=== PATIENT | male | born 1965 | race Asian ===

== ENCOUNTER 2022-03-20 12:28 | Inpatient (IN) | payer OTHER ==
[2022-03-20 12:38] VITALS: TEMP 97.8; BMI 25.0
[2022-03-20] MEDS ORDERED: FENTANYL CITRATE/PF 50 MCG/ML VIAL ONE (12:54)
[2022-03-20] MEDS ORDERED: LACTATED RINGERS SOLUTION 1,000 ML/1,000 ML INFUS.BAG IV STA (12:57)
[2022-03-20 13:17] LABS: EOS % 1.4 % (0-4.5); HEMATOCRIT 48.9 % (35.4-49); HEMOGLOBIN 17.1 GM/dL (11.7-16.9); LYMPH % 27.4 % (8-40); MEAN CELL VOLUME 94.3 fl (80-96); MEAN PLT VOLUME 7.7 fl (7.5-11.1); NEUT % 60.2 % (42.8-82.8); PLATELET COUNT 188 10^3/uL (134-434); RBC 5.19 M/mm3 (4.00-5.60); RDW 12.4 % (11.9-15.9); WHITE BLOOD COUNT 5.3 K/mm3 (4.0-10.0)
[2022-03-20 13:34] LABS: INR 0.97 (0.83-1.09); PROTHROMBIN TIME (PATIENT) 11.3 SEC (9.7-13.0)
[2022-03-20 13:49] LABS: ALBUMIN 3.8 g/dl (3.4-5.0); BLOOD UREA NITROGEN 16.8 mg/dL (7-18)
[2022-03-20 13:51] LABS: CREATININE 1.1 mg/dL (0.55-1.3)
[2022-03-20 13:53] LABS: BILIRUBIN,TOTAL 0.8 mg/dL (0.2-1); TOT PROT 7.7 g/dl (6.4-8.2)
[2022-03-20 16:51] VITALS: BP 119/83; PULSE 89; RESP 18
== END 2022-03-20 17:32 | disposition left against medical advice (07) | DRG 135 ==
LOC: JER 12:28 → JERBED 15:17
PROVIDERS: ADMIT Internal Medicine; ATTEND Internal Medicine
DX: S22.41XA Multiple fractures of ribs, right side, initial encounter for closed fracture (principal); R07.89 Other chest pain; S27.0XXA Traumatic pneumothorax, initial encounter; V29.99XA Rider (driver) (passenger) of other motorcycle injured in unspecified traffic accident, initial encounter; Y93.I9 Activity, other involving external motion; Y92.488 Other paved roadways as the place of occurrence of the external cause; Y99.9 Unspecified external cause status
CPT/HCPCS: 36415; 70450-TC; 71045-TC-FY; 71046-TC-FY; 71260-TC; 72125-TC; 74177-TC; 80053; 85025; 85610; 86850; 86900; 86901; 99285-25; C9803-CS; Q9967; U0003; U0005